=== PATIENT | male | born 1950 | race Two or more races ===

== ENCOUNTER 2017-03-26 10:38 | Day surgery (SDC) | payer BC, MEDICARE ==
[2017-03-26] MEDS ORDERED: LIDOCAINE 2% MDV (20MG/ML) 20ML VIAL IV ONE (10:39)
[2017-03-26] MEDS ORDERED: PROPOFOL 10 MG/ML VIAL IV ONE (10:39)
--- NOTE | 2017-03-27 12:31 | Operative Note ---
DATE OF SURGERY: 03/26/2017 OPERATION: Screening COLONOSCOPY with cold forceps polypectomy. PREOPERATIVE DIAGNOSIS: Subsequent screening exam, average risk. POSTOPERATIVE DIAGNOSES: 1. Sigmoid diverticulosis. 2. Transverse colon polyp. PROCEDURE: After informed consent was obtained from the patient, he was placed in the left lateral decubitus position in the endoscopy suite, sedated and monitored by the department of anesthesia. Digital rectal examination was unremarkable. A well-lubricated [id number] colonoscope was inserted into the rectum and advanced to the cecum. Preparation quality was good. The ileocecal valve, appendiceal orifice, cecum, and ascending colon were unremarkable. There was a diminutive transverse colon polyp which was removed with a cold forceps. Minimal bleeding was noted at the site. The remainder of the transverse colon and descending colon were unremarkable. The sigmoid colon did reveal [id number] diverticular changes. No inflammation or polyps were seen. The rectum was unremarkable in forward and in J-turn views. The endoscope was straightened, the rectal ampulla deflated, and the endoscope was removed. RECOMMENDATIONS: The patient should follow a high-fiber diet. I would recommend a repeat exam in 5-10 years pending tissue histology. As always, thank you for allowing me to participate in the healthcare of your patients. CC: BEVELREY TEJADA MD, FACP MTDD
== END 2017-03-26 12:20 | disposition home or self-care (01) ==
LOC: HOP 10:38
PROVIDERS: ATTEND Internal Medicine Gastroenterology
DX: Z12.11 Encounter for screening for malignant neoplasm of colon (principal); D12.3 Benign neoplasm of transverse colon; J44.9 Chronic obstructive pulmonary disease, unspecified